=== PATIENT | female | born 1960 | race Caucasian/White ===

== ENCOUNTER → 2025-10-12 11:01 | Outpatient (REF) | payer OTHER, SELFPAY | LOC: HWRAD 11:01 | PROVIDERS: ATTENDING PHYSICIAN Psychiatry & Neurology Neurology; FAMILY PHYSICIAN Nurse Practitioner Family; OTHER PHYSICIAN Orthopaedic Surgery Foot and Ankle Surgery; REFERRING PHYSICIAN Internal Medicine Rheumatology | DX: R93.7 Abnormal findings on diagnostic imaging of other parts of musculoskeletal system (principal) | CPT/HCPCS: 70450 ==